=== PATIENT | male | born 1995 | race Caucasian/White ===

== ENCOUNTER 2016-11-01 06:07 | Emergency (ER) | payer OTHER ==
[~2016-11-01] VITALS: Ht 185.4 cm; Wt 106.6 kg
[2016-11-01] MEDS ORDERED: ONDANSETRON 4MG/2ML VIAL (J2405) IV ONE (06:45)
[2016-11-01] MEDS ORDERED: MORPHINE 4 MG/ML 1ML SYRINGE IV PRN (06:45)
[2016-11-01] MEDS ORDERED: NS 1,000 ML IV ONE (06:45)
[2016-11-01 07:24] LABS: ALBUMIN 4.1 GM/DL (3.2-5.2); ALBUMIN/GLOBULIN RATIO 1.17 (1.00-1.93); ALKALINE PHOSPHATASE 103 U/L (45-117); ALT/SGPT 24 U/L (12-78); ANION GAP 10 MEQ/L (8-16); AST/SGOT 22 U/L (15-37); BILIRUBIN,DIRECT 0.1 MG/DL (0.0-0.2); BILIRUBIN,TOTAL 0.5 MG/DL (0.2-1.0); BLOOD UREA NITROGEN 12 MG/DL (7-18); CALCIUM LEVEL 9.2 MG/DL (8.5-10.1); CARBON DIOXIDE LEVEL 24 MEQ/L (21-32); CHLORIDE LEVEL 107 MEQ/L (98-107); CREATININE FOR GFR 1.08 MG/DL (0.70-1.30); GLUCOSE, FASTING 112 MG/DL (70-105); POTASSIUM SERUM 3.7 MEQ/L (3.5-5.1); SODIUM LEVEL 141 MEQ/L (136-145); TOTAL PROTEIN 7.6 GM/DL (6.4-8.2)
[2016-11-01 08:34] LABS: MEAN CORPUSCULAR HEMOGLOBIN 27.2 pg (27.0-33.0); MEAN CORPUSCULAR HGB CONC 33.9 g/dl (32.0-36.5); MEAN CORPUSCULAR VOLUME 80.4 fl (80.0-96.0); PLATELET COUNT, AUTOMATED 206 k/mm3 (150-450); RED CELL DISTRIBUTION WIDTH 13.1 % (11.5-14.5); WHITE BLOOD COUNT 8.6 K/mm3 (4.0-10.0)
[2016-11-01 09:15] LABS: BANDS 1 % (< 11)
[2016-11-01] MEDS ORDERED: PERC5TAB6 PO ×2 (09:26→10:34)
[2016-11-01] MEDS ORDERED: FLOM5CAP PO (09:28)
[2016-11-01] MEDS ORDERED: KETO10TAB PO (09:29)
--- NOTE | 2016-11-01 09:31 | REP ---
Clinical: Right flank pain. Findings: Mild acute right-sided obstructive uropathy with edematous enlargement of the kidney and hydroureteronephrosis with periureteral stranding secondary to a 3 mm calculus in the mid ureter (images 96 - 97). Left kidney/ureter and bladder are normal. No further urinary calcifications identified. Liver, spleen, pancreas, gallbladder, and bilateral adrenal glands are normal. The enteric system is without obstruction or acute inflammatory process. Normal terminal ileum and appendix identified in the right lower quadrant. Pelvis demonstrates normal bladder and age appropriate prostate/seminal vesicles. No ascites. No free air. No adenopathy. Abdominal aorta without aneurysm. Musculoskeletal structures intact. Impression: Mild acute right-sided obstructive uropathy with a 3 mm calculus in the mid-right ureter. Signed by Jack García MD 11/01/2016 09:23 A
[2016-11-01 09:42] VITALS: BP 146/68
== END 2016-11-01 09:54 | disposition home or self-care (01) ==
LOC: M ED 07:54
DX: N20.1 Calculus of ureter (principal)
CPT/HCPCS: 36415; 74176; 80048; 80076; 81001; 83690; 85025; 87040; 87086; 93041; 96361; 96374; 96375; 99285; J2405